=== PATIENT | male | born 1980 | race Caucasian/White ===

== ENCOUNTER 2018-02-27 22:20 | Emergency (ER) | payer SELFPAY ==
[~2018-02-27] VITALS: Ht 182.9 cm; Wt 105.0 kg
[2018-02-27] MEDS ORDERED: diphenhydrAMINE HCL 50 MG/ML VIAL ONE (22:24)
[2018-02-27] MEDS ORDERED: SODIUM CHLOR 0.9% 1000 ML INJ 1,000 ML IV SCH (22:25)
[2018-02-27] MEDS ORDERED: methylPREDNISolone SOD SUCC 125 MG/2 ML VIAL IV PUSH ONE (22:30)
[2018-02-27] MEDS ORDERED: EPINEPHrine HCL (1:1000) 1 MG/ML VIAL IM ONE (22:30)
[2018-02-27] MEDS ORDERED: FAMOTIDINE 20 MG/2 ML VIAL IV PUSH ONE (22:30)
[2018-02-27] MEDS ORDERED: SODIUM CHLORIDE 0.9% FLUSH 10 ML FLUSH IV FLUSH PRN (22:30)
[2018-02-27 22:39] VITALS: BP 151/79; PULSE 89; RESP 16; TEMP 98.9; O2SAT 97
[2018-02-27 22:40] VITALS: RESP 16; O2SAT 97
--- NOTE | 2018-02-27 22:43 | PD ---
HPI Chief Complaint: Allergic/Adverse Reaction Time Seen by Provider: 22:25 Travel History International Travel<30 days: No Contact w/Intl Traveler<30days: No Traveled to known affect area: No History of Present Illness HPI 37-year-old male here by private vehicle for evaluation of possible allergic reaction. The patient reports an allergy to shellfish. He was at a restaurant today and believes he may have consumed a ditch that had shellfish in it. This occurred about 45 minutes prior to arrival. He complains of difficulty taking a deep breath, chest tightness, feeling as though his face and lips are swelling and tingling. No nausea or vomiting. No rash. PFSH Social History Tobacco Use: No (Former Smoker) Allergies-Medications (Allergen,Severity, Reaction): Coded Allergies: shellfish derived (Verified Allergy, Unknown, 02/27/18) Reported Meds & Prescriptions Reported Meds & Active Scripts Active Prednisone 50 Mg Tab 50 Mg PO DAILY 4 Days Epipen 2-Jimmy Inj (Epinephrine) 0.3 Mg/0.3 Ml Pfpen 0.3 Mg IM ONCE PRN Review of Systems Except as stated in HPI: all other systems reviewed are Neg Physical Exam Narrative GENERAL: Well-developed, well-nourished, awake, alert, appears anxious SKIN: Focused skin assessment warm/dry. No rash. HEAD: Atraumatic. Normocephalic. EYES: Pupils equal and round. No scleral icterus. No injection or drainage. ENT: No nasal bleeding or discharge. Mucous membranes pink and moist. No tongue or lip swelling. No drooling or stridor. NECK: Trachea midline. No JVD. CARDIOVASCULAR: Regular rate and rhythm. No murmur appreciated. RESPIRATORY: No accessory muscle use. Clear to auscultation. Breath sounds equal bilaterally. No respiratory distress. GASTROINTESTINAL: Abdomen soft, non-tender, nondistended. Hepatic and splenic margins not palpable. MUSCULOSKELETAL: No obvious deformities. No clubbing. No cyanosis. No edema. NEUROLOGICAL: Awake and alert. No obvious cranial nerve deficits. Motor grossly within normal limits. Normal speech. PSYCHIATRIC: Appropriate mood and affect; insight and judgment normal. Data Data Last Documented VS Vital Signs Date Time Temp Pulse Resp B/P (MAP) Pulse Ox O2 Delivery O2 Flow Rate FiO2 02/27/18 22:40 16 97 Room Air 02/27/18 22:39 98.9 89 151/79 (103) Orders Orders Diphenhydramine Inj (Benadryl Inj) (02/27/18 22:24) Basic Metabolic Panel (Bmp) (02/27/18 22:25) Complete Blood Count With Diff (02/27/18 22:25) Ecg Monitoring (02/27/18 22:25) Iv Access Insert/Monitor (02/27/18 22:25) Oximetry (02/27/18 22:25) Methylprednisolone So Succ Inj (Solumedr (02/27/18 22:30) Famotidine Inj (Pepcid Inj) (02/27/18 22:30) Sodium Chlor 0.9% 1000 Ml Inj (Ns 1000 M (02/27/18 22:25) Sodium Chloride 0.9% Flush (Ns Flush) (02/27/18 22:30) Epinephrine (1:1000) Inj (Adrenalin (1:1 (02/27/18 22:30) Ed Discharge Order (02/28/18 01:21) Labs Laboratory Tests Test 02/27/18 22:30 White Blood Count 8.6 TH/MM3 Red Blood Count 5.46 MIL/MM3 Hemoglobin 17.2 GM/DL Hematocrit 50.4 % Mean Corpuscular Volume 92.5 FL Mean Corpuscular Hemoglobin 31.5 PG Mean Corpuscular Hemoglobin Concent 34.0 % Red Cell Distribution Width 13.5 % Platelet Count 208 TH/MM3 Mean Platelet Volume 8.4 FL Neutrophils (%) (Auto) 57.7 % Lymphocytes (%) (Auto) 30.8 % Monocytes (%) (Auto) 8.6 % Eosinophils (%) (Auto) 2.5 % Basophils (%) (Auto) 0.4 % Neutrophils # (Auto) 5.0 TH/MM3 Lymphocytes # (Auto) 2.6 TH/MM3 Monocytes # (Auto) 0.7 TH/MM3 Eosinophils # (Auto) 0.2 TH/MM3 Basophils # (Auto) 0.0 TH/MM3 CBC Comment DIFF FINAL Differential Comment Blood Urea Nitrogen 10 MG/DL Creatinine 1.32 MG/DL Random Glucose 100 MG/DL Calcium Level 9.2 MG/DL Sodium Level 139 MEQ/L Potassium Level 3.7 MEQ/L Chloride Level 105 MEQ/L Carbon Dioxide Level 26.0 MEQ/L Anion Gap 8 MEQ/L Estimat Glomerular Filtration Rate 62 ML/MIN MDM Medical Decision Making Medical Screen Exam Complete: Yes Emergency Medical Condition: Yes Differential Diagnosis Allergic reaction, anaphylaxis Narrative Course Vital signs reviewed. CBC is remarkable for hemoglobin 17.2, otherwise unremarkable. BMP is remarkable for creatinine 1.32, GFR 62, otherwise unremarkable. Patient was given 0.3 mg of IM epinephrine shortly after arrival to the emergency department. He was given 125 mg of IV Solu-Medrol and 20 mg of IV Pepcid as well. He states that he took 50 mg of oral Benadryl prior to arrival. 11:40 PM: Patient feels significantly improved. He will be observed in the emergency department for a few more hours. Patient was observed in the emergency department for 3 hours without return of symptoms. He is resting comfortably. Plan is to discharge him home with a prescription for an EpiPen as well as prednisone 50 mg daily for the next 4 days. PMD follow-up this week. He was advised on when to return to the emergency department. He verbalizes understanding and agreement with plan. Diagnosis Primary Impression: Allergic reaction Qualified Codes: T78.40XA - Allergy, unspecified, initial encounter Referrals: Primary Care Physician 3 days Additional Instructions: Follow-up with a primary care physician this week. Return to the emergency department for worsening symptoms or any other concerns. Scripts Prednisone (Prednisone) 50 Mg Tab 50 MG PO DAILY for 4 Days, #4 TAB 0 Refills Prov: Riley Goddard MD 02/28/18 Epinephrine Inj (Epipen 2-Jimmy Inj) 0.3 Mg/0.3 Ml Pfpen 0.3 MG IM ONCE Y for ALLERGIC REACTION, #1 PACK 0 Refills Prov: Riley Goddard MD 02/28/18 Disposition: 01 DISCHARGE HOME Condition: Stable Riley Goddard MD February 27, 2018 22:43
[2018-02-27 22:45] LABS: BASOPHIL % 0.4 % (0.0-2.0); EOSINOPHIL # 0.2 TH/MM3 (0-0.4); EOSINOPHIL % 2.5 % (0.0-4.0); HEMATOCRIT 50.4 % (39.0-51.0); HEMOGLOBIN 17.2 GM/DL (13.0-17.0); LYMPH % 30.8 % (9.0-44.0); LYMPHOCYTE # 2.6 TH/MM3 (1.0-4.8); MEAN CELL VOLUME 92.5 FL (80.0-100.0); MEAN CORPUSCULAR HEMOGLOBIN 31.5 PG (27.0-34.0); MEAN PLATELET VOLUME 8.4 FL (7.0-11.0); MONO % 8.6 % (0.0-8.0); MONOCYTE # 0.7 TH/MM3 (0-0.9); NEUT % 57.7 % (16.0-70.0); PLATELET COUNT 208 TH/MM3 (150-450); RED BLOOD COUNT 5.46 MIL/MM3 (4.50-5.90); RED CELL DISTRIBUTION WIDTH 13.5 % (11.6-17.2); WHITE BLOOD COUNT 8.6 TH/MM3 (4.0-11.0)
[2018-02-27 23:36] LABS: CALCIUM 9.2 MG/DL (8.5-10.1); CREATININE 1.32 MG/DL (0.60-1.30)
[2018-02-28] MEDS ORDERED: PRED50 PO (01:01)
[2018-02-28] MEDS ORDERED: EPIP0.3I IM (01:01)
== END 2018-02-28 01:31 | disposition home or self-care (01) ==
LOC: NEPC 22:20
DX: T78.40XA Allergy, unspecified, initial encounter (principal); Z87.891 Personal history of nicotine dependence
CPT/HCPCS: 80048; 85025; 96361; 96372; 96374; 96375; 99284; J0171; J1200; J2930; J7030